=== PATIENT | female | born 1935 | race Caucasian/White ===

== ENCOUNTER → 2016-04-01 | Day surgery (SDC) | payer BC ==
[2016-03-26 10:06] VITALS: Ht 157.5 cm; Wt 79.5 kg
[~2016-04-01] VITALS: Ht 157.5 cm; Wt 79.5 kg
[~2016-04-01] MED LIST: 500ML BSS 0.3ML EPI 1:1000PF IRRIG ONE; ACETAMINOPHEN 325 MG TAB PO PRN; AMVISC PLUS 0.8ML SYRINGE INT OCU ONE; ASPCH81X PO; ATOR-54 PO; ATROPINE SULFATE 0.1 MG/ML 5ML SYR IV PRN; AcetaZOLAMIDE 250 MG TAB ONE; BETAXOLOL HCL 0.25% OP SUSP PER DROP CHARGE OPL SCH; BRIMONIDINE TART 0.2% OP SOLN PER DROP CHARGE ONE; BSS FLUSH ONE; CLOP1TAB15 PO; CLTP PO; ENDOCOAT 0.85ML SYRINGE INT OCU ONE; EpHEDrine SULFATE INJ 50 MG/ML AMP IV PRN; EpINEphrine INJ 1MG/ML AMP 1 MG/ML AMP ONE; FENTANYL CITRATE INJ 50 MCG/1 ML 2 ML VIAL IV PRN; FLUMAZENIL 0.1 MG/1 ML 10 ML VIAL IV PRN; FRS/40 PO; HYDROmorphone INJ 2 MG/ML SYR/VIAL IV PRN; LABETALOL HCL IV 5 MG/ML 20ML IV PRN; LACTATED RINGER'S 1000ML 500 ML IV SCH; LIDOCAINE 4% OP SOLN DROP CHARGE ONE; LIDOCAINE 4% OP SOLN DROP CHARGE OPL SCH; LIDOCAINE HCL 1% MPF 2 ML VIAL ONE; LISI5TAB3 PO; MEPERIDINE HCL 25 MG/ML CARP IV PRN; METO50TA16 PO; MIDAZOLAM HCL 1 MG/ML 2ML VIAL ONE; MIX: 4ML BSS 1ML EPI 1:1000 PF INSTIL ONE; MOXIFLOXACIN OPH SOLN PER DROP CHARGE ONE; MULT-506 PO; NALOXONE HCL 0.4 MG/1 ML VIAL/CARP IV PRN; NTRGSL/4 UT; OCUCOAT 1 ML SOLN IO ONE; ONDANSETRON INJ 2 MG/ML 2 ML VIAL IV PRN; PANT40TA PO; PHENYLEPHRINE 100MCG/ML 5ML SYR IV PRN; POVIDONE-IODINE OP SOLN 30 ML BTL ONE; PROPARACAINE 0.5% OP SOLN PER DROP CHARGE OPL SCH; TOBRAMYCIN/DEXAMETHASONE OPH OINT PER APPLN CHARGE ONE
--- NOTE | 2016-04-01 11:24 | History & Physical Bridge - [place] ---
H&P Re-Evaluation Bridge Note: I have examined the patient, reviewed the History & Physical and in the interval since the performance of the History & Physical I have noted the following changes of clinical significance: No changes noted
[2016-04-01] MEDS: PHENYLEPHRINE HCL 2.5% OP SOLN PER DROP CHARGE OPL SCH ×2 (11:42→11:47)
[2016-04-01] MEDS: TROPICAMIDE 1% OP SOLN PER DROP CHARGE OPL SCH ×2 (11:43→11:48)
[2016-04-01] MEDS: CYCLOPENTOLATE HCL 1% OP SOLN PER DROP CHARGE OPL SCH ×2 (11:44→11:49)
[2016-04-01] MEDS: MOXIFLOXACIN OPH SOLN PER DROP CHARGE OPL SCH ×2 (11:45→11:55)
--- NOTE | 2016-04-01 12:42 | Discharge Instructions-SurgCtr ---
Discharge Instructions Visit Reason for Visit: Cataract Left Eye Discharge Goals Goal(s): Improve function Activity Recommendations Lifting Limitations: no more than 10 pounds Exercise/Sports Limitations: gradually increase as tolerated May Resume Sexual Activity: when tolerated Shower/Bathe: tomorrow Driving or Machine Use: resume 1 day after discharge Anesthesia . Post Anesthesia Instructions: If you have had General Anesthesia or IV Sedation: * Do not drive today. * Resume driving when surgeon permits. * Do not make important decisions or sign legal documents today. * Call surgeon for: 1. Temperature elevations greater than 101 degrees F. 2. Uncontrollable pain. 3. Excessive bleeding. 4. Persistent nausea and vomiting. 5. Medication intolerance (nausea, vomiting or rash). * For nausea and vomiting use only clear liquids such as: tea, soda, bouillon until nausea subsides, then gradually increase diet as tolerated. * If you have any concerns or questions, call your surgeon's office. If physician is unavailable and it is an emergency, call 911 or go to the nearest emergency room. . Instructions / Follow-Up Instructions / Follow-Up ACTIVITY RECOMMENDATIONS: * Light activities. * Mild irritation and blurred vision are common for the first few days. * You may walk outside, read, watch television. * Redness around the white part of the eye is common. MEDICATIONS: Resume previous medications unless instructed otherwise by your surgeon. * Take white Diamox (Acetazolamide) tablet at 4 pm today. Start all eye drops at 4 pm today: * Eye drops (today and tomorrow): Prednisone - one drop in operative eye every 3 hours while awake Ofloxacin - one drop in operative eye every 3 hours while awake SPECIAL CARE INSTRUCTIONS: * Tape plastic shield over eye to sleep at night. Call your doctor at with any concerns or problems. FOLLOW UP VISIT: Follow-up with Dr Calhoun at [place] office as scheduled. Diet Recommendations Home Diet: resume previous diet Medical Emergencies . Who to Call and When: Medical Emergencies: If at any time you feel your situation is an emergency, please call 911 immediately. . Non-Emergent Contact . . "Provider Documentation" section prepared by Issac Calhoun.
--- NOTE | 2016-04-01 13:04 | [facility] Post Operative Brief Note ---
Immediate Operative Summary Operative Date Apr 01, 2016. Pre-Operative Diagnosis Cataract Left Eye Post-Operative Diagnosis Same Procedure(s) Performed Left Cataract Phacoemulsification With Intraocular Lens Implant Surgeon Dr. Calhoun Surgery Tech Surgeon(s) None Estimated Blood Loss None Findings Nuclear cataract left eye Fluids (cc crystalloids) 300 ml Specimens None Drains none Anesthesia L/S Complication(s) None Disposition Recovery Room / PACU
[2016-04-01 13:10] VITALS: TEMP 36.4
--- NOTE | 2016-04-01 13:22 | Anesthesia Progress Nt - [facility] ---
Anesthesia Post Op Note Date & Time Apr 01, 2016 at 13:22 Vital Signs Pain Intensity: 0 Vital Signs Past 12 Hours Date Time Temp Pulse Resp B/P Pulse Ox O2 Delivery O2 Flow Rate FiO2 04/01/16 13:10 36.4 61 16 106/54 100 Room Air 04/01/16 11:31 36.6 65 16 139/84 98 Room Air Notes Mental Status: alert / awake / arousable, participated in evaluation Pt Amnestic to Procedure: Yes Nausea / Vomiting: adequately controlled Pain: adequately controlled Airway Patency, RR, SpO2: stable & adequate BP & HR: stable & adequate Hydration State: stable & adequate Anesthetic Complications: no major complications apparent
--- NOTE | 2016-04-01 13:23 | OPERATIVE REPORT ---
DATE OF OPERATION: 04/01/2016 PREOPERATIVE DIAGNOSIS: Senile nuclear cataract, left eye. POSTOPERATIVE DIAGNOSIS: Senile nuclear cataract, left eye. PROCEDURE: Phacoemulsification of left cataract with posterior chamber lens implant, type Bausch \T\ Lomb, model MX60, power +23.50 Diopters. ANESTHESIA: Local standby. SURGEON: Dr. Calhoun. COMPLICATIONS: None. OPERATING TIME: 10 minutes. OPERATION AND FINDINGS: PROCEDURE: The left pupil was dilated. The anesthetic was administered using a topical technique. The left eye was prepped and draped. A speculum was placed. A paracentesis was placed. The chamber was filled with Amvisc Plus and EndoCoat. Epinephrine solution was used. A clear corneal incision was formed. A capsulorrhexis was performed. The nucleus was hydrodissected. The lens was removed with phacoemulsification. Time was 3.60 seconds. The aspiration unit was used to remove the cortex. The capsule was filled with Amvisc Plus. The lens implant was folded and placed into the capsule. The incision was hydrated. The Amvisc was aspirated. The wound was secure. The chamber was deep. The pupil was round. Brimonidine and TobraDex ointment and Vigamox solution were placed. The speculum was removed. DISPOSITION: The patient was returned to the recovery room in stable condition. I attest to the content of the Intraoperative Record and any orders documented therein. Any exceptions are noted below. I attest to the content of the Intraoperative Record and any orders documented therein. Any exceptions are noted below. KATYA
[2016-04-01 13:40] VITALS: BP 112/58; PULSE 62; O2SAT 98
== END | disposition home or self-care (01) ==
LOC: X.SURG 11:02
PROVIDERS: ATTEND Specialist
DX: H25.10 Age-related nuclear cataract, unspecified eye (principal); I10 Essential (primary) hypertension; I51.9 Heart disease, unspecified; Z79.82 Long term (current) use of aspirin

== ENCOUNTER → 2016-07-02 | Outpatient (CLI) | payer BC ==
[~2016-07-02] MED LIST changes: -500ML BSS 0.3ML EPI 1:1000PF IRRIG ONE; -ACETAMINOPHEN 325 MG TAB PO PRN; -AMVISC PLUS 0.8ML SYRINGE INT OCU ONE; -ATROPINE SULFATE 0.1 MG/ML 5ML SYR IV PRN; -AcetaZOLAMIDE 250 MG TAB ONE; -BETAXOLOL HCL 0.25% OP SUSP PER DROP CHARGE OPL SCH; -BRIMONIDINE TART 0.2% OP SOLN PER DROP CHARGE ONE; -BSS FLUSH ONE; -ENDOCOAT 0.85ML SYRINGE INT OCU ONE; -EpHEDrine SULFATE INJ 50 MG/ML AMP IV PRN; -EpINEphrine INJ 1MG/ML AMP 1 MG/ML AMP ONE; -FENTANYL CITRATE INJ 50 MCG/1 ML 2 ML VIAL IV PRN; -FLUMAZENIL 0.1 MG/1 ML 10 ML VIAL IV PRN; -HYDROmorphone INJ 2 MG/ML SYR/VIAL IV PRN; -LABETALOL HCL IV 5 MG/ML 20ML IV PRN; -LACTATED RINGER'S 1000ML 500 ML IV SCH; -LIDOCAINE 4% OP SOLN DROP CHARGE ONE; -LIDOCAINE 4% OP SOLN DROP CHARGE OPL SCH; -LIDOCAINE HCL 1% MPF 2 ML VIAL ONE; -MEPERIDINE HCL 25 MG/ML CARP IV PRN; -MIDAZOLAM HCL 1 MG/ML 2ML VIAL ONE; -MIX: 4ML BSS 1ML EPI 1:1000 PF INSTIL ONE; -MOXIFLOXACIN OPH SOLN PER DROP CHARGE ONE; -NALOXONE HCL 0.4 MG/1 ML VIAL/CARP IV PRN; -OCUCOAT 1 ML SOLN IO ONE; -ONDANSETRON INJ 2 MG/ML 2 ML VIAL IV PRN; -PHENYLEPHRINE 100MCG/ML 5ML SYR IV PRN; -POVIDONE-IODINE OP SOLN 30 ML BTL ONE; -PROPARACAINE 0.5% OP SOLN PER DROP CHARGE OPL SCH; -TOBRAMYCIN/DEXAMETHASONE OPH OINT PER APPLN CHARGE ONE
--- NOTE | 2016-07-02 10:55 | DIAGNOSTIC IMAGING REPORT ---
CT OF THE CHEST WITHOUT IV CONTRAST CLINICAL HISTORY: R91.1 Pulmonary [id number] COMPARISON STUDY: 05/29/2015 CT DOSE: 252.45 mGycm TECHNIQUE: CT of the thorax was performed from the thoracic inlet to the lung bases. Images are reviewed in the axial, sagittal, and coronal planes. IV contrast was not administered for this examination. FINDINGS: Thyroid: There is an equivocal 1 cm lower pole left lobe thyroid nodule. Thoracic aorta: The thoracic aorta is normal in course and caliber, noting standard 3 vessel arch anatomy. Heart: There are coronary artery calcifications. There is no pericardial effusion. Lungs and pleural spaces: There are no pleural effusions. There is no focal pulmonary consolidation. There is bibasilar atelectasis. There are scattered punctate bony nodules similar to the preceding study. The dominant 6 mm pleural-based right middle lobe pulmonary nodule remains unchanged. Mediastinum: There is no mediastinal lymphadenopathy. Smiley: There is no evidence of pathologic hilar adenopathy given the limitations of a noncontrast study Axilla: Clear. Upper abdomen: Cholelithiasis Skeletal structures: There are no lytic or blastic osseous lesions. IMPRESSION: 1. Stable 6 mm solid subpleural right middle lobe pulmonary nodule. 2. Cholelithiasis Please refer to below summary of Fleischner criteria recommendations for follow-up of incidental CT nodules (John Mccollum, Guidelines for management of small pulmonary nodules detected on CT scans: A statement from the Fleischner Society, Radiology 237: [phone].) SOLID NODULES Solitary nodule size: <6 mm * low risk patients: no follow-up needed * high risk patients: optional CT at 12 months Solitary nodule size: 6-8 mm * low risk patients: follow-up at 6-12 months, then consider further follow-up at 18-24 months * high risk patients: initial follow-up CT at 6-12 months and then at 18-24 months if no change Solitary nodule size: >8 mm * either low or high risk patients - consider follow-up CT at 3 months, and/or CT-PET, and/or biopsy Multiple nodules size: <6 mm * low risk patients: no routine follow-up * high risk patients: optional CT at 12 months Multiple nodules size: 6-8 mm * low risk patients: follow-up at 3-6 months, then consider further follow-up at 18-24 months * high risk patients: follow-up at 3-6 months, then at 18-24 months if no change Multiple nodules size: >8 mm * low risk patients: follow-up at 3-6 months, then consider further follow-up at 18-24 months * high risk patients: follow-up at 3-6 months, then at 18-24 months if no change Note: newly detected indeterminate nodule in persons 35 years of age or older. * low risk patients: minimal or absent history of smoking and/or other known risk factors * high risk patients: history of smoking or of other known risk factors (e.g. first degree relative with lung cancer, or exposure to asbestos, radon, uranium) * if a nodule up to 8 mm is partly solid or is ground glass further follow-up is required after 24 months to exclude possible slow growing adenocarcinoma (AL) SUBSOLID NODULES Solitary pure ground-glass nodule * nodule size <6 mm - no CT follow-up required * nodule size >=6 mm - follow-up CT at 6-12 months, then every 2 years until 5 years Solitary part-solid nodule * nodule size <6 mm - no CT follow-up required * nodule size >=6 mm - follow-up CT at 3-6 months. If unchanged, and solid component remains <6 mm, then annual follow-up for 5 years Multiple subsolid nodules * nodule size <6 mm - follow-up CT at 3-6 months, consider further follow-up at 2 and 4 years if stable * nodule size >=6 mm - follow-up CT at 3-6 months, subsequent management based on the most suspicious nodule(s) Electronically signed by: Sj Rao M.D. 07/02/2016 10:53 AM Dictated Date/Time: 07/02/2016 10:48 AM
== END | disposition home or self-care (01) ==
LOC: C.CTS 10:34
PROVIDERS: ATTEND Internal Medicine
DX: R91.1 Solitary pulmonary nodule (principal); K80.20 Calculus of gallbladder without cholecystitis without obstruction

== ENCOUNTER → 2016-08-03 | Outpatient (CLI) | payer BC | END | disposition home or self-care (01) | LOC: C.LAB1850 10:52 | PROVIDERS: ATTEND Internal Medicine Rheumatology | DX: M81.0 Age-related osteoporosis without current pathological fracture (principal); E55.9 Vitamin D deficiency, unspecified; E61.8 Deficiency of other specified nutrient elements ==

== ENCOUNTER → 2016-12-21 | Outpatient (CLI) | payer BC ==
--- NOTE | 2016-12-21 14:15 | MAMMOGRAPHY REPORT ---
BILATERAL DIGITAL SCREENING MAMMOGRAM WITH CAD: 12/21/2016 CLINICAL HISTORY: Routine screening. Patient has no complaints. TECHNIQUE: Bilateral CC and MLO views were obtained. Current study was also evaluated with a Compute r Aided Detection (CAD) system. COMPARISON: Comparison is made to exams dated: 12/19/2015 mammogram, 12/17/2014 mammogram, 12/15/2013 m ammogram, 09/22/2012 mammogram, 05/14/2011 mammogram, and 05/12/2010 mammogram - [facility]ter. BREAST COMPOSITION: There are scattered areas of fibroglandular density in both breasts. FINDINGS: There are benign-appearing rodlike calcifications in the breasts, and mild vascular calcifi cation bilaterally. No suspicious mass, architectural distortion or cluster of suspicious microcalci fications is seen. IMPRESSION: ACR BI-RADS CATEGORY 1: NEGATIVE There is no mammographic evidence of malignancy. A 1 year screening mammogram is recommended. The pa tient will receive written notification of the results. Approximately 10% of breast cancers are not detected with mammography. A negative mammographic report should not delay biopsy if a clinically suggestive mass is present. Aaliyah Mcneil M.D. ay/:12/21/2016 13:40:21 Television Presenter: Danita PADILLA(Veena)(M), [facility] letter sent: Normal 1/2 BI-RADS Code: ACR BI-RADS Category 1: Negative
== END | disposition home or self-care (01) ==
LOC: C.MAMM 10:24
PROVIDERS: ATTEND Internal Medicine
DX: Z12.31 Encounter for screening mammogram for malignant neoplasm of breast (principal)

== ENCOUNTER → 2016-12-29 | Outpatient (CLI) | payer BC ==
[2016-12-29 10:07] LABS: HEMATOCRIT 36.9 % (37-47); MEAN CELL VOLUME 91.1 fL (80-100); MEAN CORPUSCULAR HEMOGLOBIN 29.1 pg (25-34); MEAN PLATELET VOLUME 9.2 fL (7.4-10.4); PLATELET COUNT 212 K/uL (130-400); RED BLOOD COUNT 4.05 M/uL (4.2-5.4); WHITE BLOOD COUNT 6.63 K/uL (4.8-10.8)
[2016-12-29 10:41] LABS: ALT/SGPT 18 U/L (12-78); BLOOD UREA NITROGEN 22 mg/dl (7-18); BUN/CREATININE RATIO 20.1 (10-20); CALCIUM 9.3 mg/dl (8.5-10.1); CARBON DIOXIDE 29 mmol/L (21-32); CHLORIDE 108 mmol/L (98-107); CHOLESTEROL 119 mg/dl (0-200); CREATININE 1.11 mg/dl (0.60-1.20); GLUCOSE 84 mg/dl (70-99); POTASSIUM 4.3 mmol/L (3.5-5.1); SODIUM 142 mmol/L (136-145); TRIGLYCERIDES 66 mg/dl (0-150); VERY LOW DENSITY LIPOPROT CALC 13 mg/dl
[2016-12-29 10:44] LABS: ALB/GLOB RATIO 0.9 (0.9-2); ALKALINE PHOSPHATASE 73 U/L (45-117); AST/SGOT 19 U/L (15-37); CHOLESTEROL/HDL RATIO 1.8; HDL CHOLESTEROL 65 mg/dl; LDL CHOLESTEROL CALCULATED 41 mg/dl
== END | disposition home or self-care (01) ==
LOC: C.LAB 09:32
PROVIDERS: ATTEND Internal Medicine Cardiovascular Disease
DX: I25.10 Atherosclerotic heart disease of native coronary artery without angina pectoris (principal)

== ENCOUNTER → 2017-06-30 | Outpatient (CLI) | payer BC ==
--- NOTE | 2017-06-30 10:23 | DIAGNOSTIC IMAGING REPORT ---
(CHEST) THORAX WITHOUT CT DOSE: 261.93 mGy.cm HISTORY: R91.1 Pulmonary [id number] month follow up [id number] TECHNIQUE: Multiaxial CT images of the chest were performed without contrast. A dose lowering technique was utilized adhering to the principles of ALARA. COMPARISON: Chest CT 07/02/2016. Chest CT 05/29/2015. FINDINGS: The central airways are patent. No pleural effusions. No pneumothorax. Mild emphysema. Stable 3 mm nodule within the left lung apex on image 54. Punctate calcified granuloma within the left lung apex. Stable subcentimeter nodules within the right upper lobe with the largest on image 41 measuring 3 mm. A few scattered bibasilar linear densities suggesting scarring or subsegmental atelectasis. Stable 3 mm nodule within the right middle lobe on image 160. Stable 6 mm subpleural nodule within the right middle lobe on image 169. Stable 4 mm nodule within the right lower lobe on image 171. No new pulmonary nodules. No suspicious lytic or blastic osseous lesions. There is no left thyroid nodule. This remains unchanged. No mediastinal or hilar lymphadenopathy. The ascending thoracic aorta measures up to 3.8 cm in diameter. Calcified plaque within the coronary arteries. The heart remains mildly enlarged. Outside granuloma within the right upper lobe. The visualized liver, spleen, and adrenal glands are unremarkable. Small calcification within the posterior pericardium. IMPRESSION: 1. No significant change compared the prior study. Scattered subcentimeter pulmonary nodules as described above with the largest in the right middle lobe measuring 6 mm. These demonstrate greater than 2 year stability. Please refer to the chart below for recommended follow-up. 2. Mild emphysema. 3. Mild cardiomegaly. Please refer to below summary of Fleischner criteria recommendations for follow-up of incidental CT nodules (John Mccollum, Guidelines for management of small pulmonary nodules detected on CT scans: A statement from the Fleischner Society, Radiology 237: [phone].) SOLID NODULES Solitary nodule size: <6 mm * Low risk patients: no follow-up needed * high risk patients: optional CT at 12 months Solitary nodule size: 6-8 mm * Low risk patients: follow-up at 6-12 months, then consider further follow-up at 18-24 months * high risk patients: initial follow-up CT at 6-12 months and then at 18-24 months if no change Solitary nodule size: >8 mm * either low or high risk patients - consider follow-up CT at 3 months, and/or CT-PET, and/or biopsy Multiple nodules size: <6 mm * Low risk patients: no routine follow-up * high risk patients: optional CT at 12 months Multiple nodules size: 6-8 mm * Low risk patients: follow-up at 3-6 months, then consider further follow-up at 18-24 months * high risk patients: follow-up at 3-6 months, then at 18-24 months if no change Multiple nodules size: >8 mm * Low risk patients: follow-up at 3-6 months, then consider further follow-up at 18-24 months * high risk patients: follow-up at 3-6 months, then at 18-24 months if no change Note: newly detected indeterminate nodule in persons 35 years of age or older. * Low risk patients: minimal or absent history of smoking and/or other known risk factors * high risk patients: history of smoking or of other known risk factors (e.g. first degree relative with lung cancer, or exposure to asbestos, radon, uranium) * if a nodule up to 8 mm is partly solid or is ground glass further follow-up is required after 24 months to exclude possible slow growing adenocarcinoma (AL) SUBSOLID NODULES Solitary pure ground-glass nodule * nodule size <6 mm - no CT follow-up required * nodule size >=6 mm - follow-up CT at 6-12 months, then every 2 years until 5 years Solitary part-solid nodule * nodule size <6 mm - no CT follow-up required * nodule size >=6 mm - follow-up CT at 3-6 months. If unchanged, and solid component remains <6 mm, then annual follow-up for 5 years Multiple subsolid nodules * nodule size <6 mm - follow-up CT at 3-6 months, consider further follow-up at 2 and 4 years if stable * nodule size >=6 mm - follow-up CT at 3-6 months, subsequent management based on the most suspicious nodule(s) Electronically signed by: Pineda Gutierrez M.D. 06/30/2017 10:22 AM Dictated Date/Time: 06/30/2017 10:13 AM
== END | disposition home or self-care (01) ==
LOC: C.CTS 09:41
PROVIDERS: ATTEND Internal Medicine
DX: R91.1 Solitary pulmonary nodule (principal)

== ENCOUNTER → 2017-07-12 | Outpatient (CLI) | payer BC | END | disposition home or self-care (01) | LOC: C.MAMM 10:50 | PROVIDERS: ATTEND Internal Medicine Rheumatology | DX: M81.0 Age-related osteoporosis without current pathological fracture (principal); E61.8 Deficiency of other specified nutrient elements; M85.88 Other specified disorders of bone density and structure, other site ==

== ENCOUNTER 2017-07-21 15:40 | Emergency (ER) | payer BC ==
[~2017-07-21] VITALS: Ht 152.4 cm; Wt 81.0 kg
[2017-07-21 15:46] VITALS: TEMP 36.4; Ht 152.4 cm; Wt 81.0 kg
[2017-07-21] MEDS ORDERED: DIAZEPAM 5MG TAB PO STA (16:06)
--- NOTE | 2017-07-21 16:15 | EMERGENCY ROOM VISIT NOTE ---
ED Visit Note First contact with patient: 15:52 CHIEF COMPLAINT: Low back pain HISTORY OF PRESENT ILLNESS: This 82-year-old female patient presents to the emergency department, ambulatory, with her , complaining of pain in the low back which began approximately 4 days ago. Today, she states she had company to the house and kept turning towards the left. The pain began worsening on the right, and she states "I think I must have pulled a muscle!" The pain was gradual in onset, is now constant and worse with movement. The patient notes the pain as "pain" and a 10/10. The patient has taken Tylenol without relief of the pain. The patient denies any loss of control of their bowel or bladder functions. There has been no leg numbness or weakness, and no change in sensation. No nausea or vomiting or abdominal pain. No chest pain or shortness of breath. The patient has not had prior back injuries. No dysuria or increased urinary frequency. Patient does have a history of osteopenia and osteoporosis. REVIEW OF SYSTEMS: A 10 system review of systems was performed with positives and pertinent negatives listed in the history of present illness. All other systems were reviewed and are negative. ALLERGIES: None MEDICATIONS: Tylenol, Eliquis, ASA, Lipitor, Fish Oil, Lasix, Lisinopril, Lopressor, Nitrostat PMH: Osteopenia, GERD, heart disease, HTN SOCIAL HISTORY: The patient lives locally with family. She denies drug, alcohol, tobacco use. PHYSICAL EXAM: VITALS: Vitals are noted on the nurse's note and reviewed by myself. Vital signs stable. GENERAL: This is a very pleasant 82 year old white female, in no acute distress , nondiaphoretic, well-developed well-nourished. SKIN: The skin was without rashes, erythema, edema, or bruising. Capillary refill less than 2 seconds. NECK: Supple without nuchal rigidity. No cervical spine tenderness. No paraspinous muscle tenderness. HEART: Regular rate and rhythm without murmurs gallops or rubs. LUNGS: Clear to auscultation bilaterally without wheezes, rales or rhonchi. ABDOMEN: Positive bowel sounds x 4. Normal tympanic percussion. Soft, nontender, without masses or organomegaly. Peng sign negative. No CVA tenderness MUSCULOSKELETAL: No muscle atrophy, erythema, or edema noted of the back. There is no tenderness over the lumbar spinous processes. There is moderate tenderness over the paraspinous muscles on the right with mild tenderness on the left. There is no tenderness over the thoracic spine or paraspinous muscles. There are muscle spasms present. The patient is slow to move around with maximum tenderness with position changes and setting. Positive straight leg raise test on the right. NEURO: Patient was alert and oriented to person place and time. Normal sensation to light and sharp touch. Deep tendon reflexes 2+ in the lower extremities. Dorsalis pedis pulse 2+ bilaterally. Strength 5/5 and equal in the bilateral lower extremities. RADIOLOGY: L-SPINE MIN 4 VIEWS ROUTINE CLINICAL HISTORY: 82 years-old Female presenting with low back pain. TECHNIQUE: Frontal, bilateral oblique, lateral, and coned in lateral views lumbar spine were obtained. COMPARISON: None. FINDINGS: Mild dextroscoliotic curvature of the lumbar spine centered at L3-4. Osteopenia. Exaggerated lumbar lordosis. Transitional lumbosacral anatomy of L5. Allowing for scoliotic curvature, vertebral bodies grossly normal height. No wedging deformities. Mild multilevel degenerative changes of the vertebral disc spaces grossly preserved. Degenerative change is greatest at L1-2. No gross evidence of osseous neural foraminal narrowing. Atherosclerosis. Sacrum grossly intact. Symmetric sacroiliac joints. Nonobstructive bowel gas pattern. IMPRESSION: 1. Mild dextroscoliotic curvature of the lumbar spine and osteopenia limits evaluation of the spine for acute osseous injury. Allowing for this, no radiographic evidence of acute osseous injury. 2. Mild multilevel degenerative changes. No gross evidence of osseous neural foraminal narrowing. Electronically signed by: Sanjay Otero M.D. 07/21/2017 4:39 PM Dictated Date/Time: 07/21/2017 4:36 PM ABD/PELVIS WITHOUT FOR STONE CLINICAL HISTORY: 82 years-old Female presenting with right flank pain for 3 to 4 days. TECHNIQUE: Multidetector CT of the abdomen and pelvis was performed without the use of intravenous contrast. IV contrast: None. A dose lowering technique was used consistent with the principles of ALARA (as low as reasonably achievable). COMPARISON: None. CT DOSE (mGy.cm): The estimated cumulative dose is 1105.17 mGy.cm. 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 Lung bases: Minimal basilar opacities, likely atelectasis. Normal heart size. Coronary artery calcification. No pericardial or pleural effusion. Liver: Normal morphology. Normal density. Biliary: No gross biliary ductal dilatation allowing for noncontrast technique. Gallbladder contains gallstones. Pancreas: Severe parenchymal atrophy. Spleen: Normal noncontrast appearance. Adrenal glands: Normal noncontrast appearance. Kidneys and ureters: Cortical thinning at the upper pole of the right kidney suggests reflux nephropathy or prior infarct or injury. Few parapelvic cysts suggested in the left kidney. No nephrolithiasis. No hydronephrosis. Normal ureters. Bladder: Incompletely evaluated secondary to underdistention. Pelvic organs: Normal noncontrast appearance. Bowel: Diverticulosis of the sigmoid colon. No pericolonic fat infiltration or wall thickening. Mild stool burden. The appendix is normal. No bowel obstruction. Peritoneal cavity: No free fluid or intraperitoneal gas. Lymph nodes: No gross lymphadenopathy allowing for noncontrast technique. Vasculature: Atherosclerosis of the normal caliber abdominal aorta. Abdominal wall: Small fat-containing umbilical hernia. Musculoskeletal: Degenerative changes of the spine. IMPRESSION: 1. Cholelithiasis. 2. No nephrolithiasis or hydronephrosis. 3. Diverticulosis. No evidence of diverticulitis. Electronically signed by: Sanjay Otero M.D. 07/21/2017 7:11 PM Dictated Date/Time: 07/21/2017 7:03 PM EMERGENCY DEPARTMENT COURSE: The patient was seen and evaluated as above. Patient was given 5 mg Valium. X-rays performed and reviewed by myself and radiologist as above. She was reassessed and continues to be experiencing severe pain. She describes the pain as 10/10. She was given a Lidoderm patch at this time. The patient was reassessed approximately 45 minutes later. She states she does believe she may have a UTI due to some mild urinary discomfort. She was given 1 dose of [place]. Urinalysis was performed and showed leukocytes and blood. The patient was reassessed and states her pain is still not controlled. IV access obtained and labs drawn at this point. The patient was given 25 mcg fentanyl IV. The patient was sent for a CT scan of the abdomen /pelvis without contrast. This was negative for stone or other acute process. Labs did not reveal any significant leukocytosis, anemia, thrombus cytopenia. Renal and hepatic function were normal. Electrolytes were normal. The patient was reassessed and states she was feeling better, however began worsening again. I advised her that she has had multiple doses of strong pain medication and muscle relaxers and that I would not be giving her any more narcotics at this time. The patient verbalized understanding. She will be sent home with a home pack for tramadol, but she was advised that she must follow-up with her PCP tomorrow for any further pain management required. The patient verbalized understanding. Discharge instructions reviewed, the patient was discharged home in good condition. The patient was seen and evaluated by Dr. Zamudio independently. I attest that I have personally reviewed the patient's current medication list. Blood Pressure Screening: Patient was found to have a slightly elevated blood pressure due to circumstances. I do not believe that the patient requires hypertension monitoring. Etiologies such as lumbago, sciatica, cauda equina, epidural abscess, osteomyelitis, fracture, aortic disease, metastatic disease, infection, renal colic, gastrointestinal, as well as others were entertained. DIAGNOSIS: Lumbar strain The chart was completed utilizing [employer] Speech voice recognition software. Grammatical errors, random word insertions, pronoun errors, and incomplete sentences are an occasional consequence of this system due to software limitations, ambient noise, and hardware issues. Any formal questions or concerns about the content, text, or information contained within the body of this dictation should be directly addressed to the provider for clarification. Current/Historical Medications Scheduled Acetaminophen/Diphenhydramine (Tylenol Pm), 1 TAB PO HS Apixaban (Eliquis), 5 MG PO BID Aspirin (Aspirin Ec), 81 MG PO DAILY Atorvastatin (Lipitor), 20 MG PO QPM Calcium Carbonate-Cholecalcife (Calcium/Vitamin D3 600-400 mg-Unit), 1 TAB PO BID Fish Oil ([place]-3), 1 CAP PO DAILY Furosemide (Lasix), 40 MG PO Q2D Lisinopril (Lisinopril), 2.5 MG PO QAM Metoprolol Tartrate (Lopressor) (Lopressor), 50 MG PO BID Multiple Vitamins W/ Minerals (Centrum Silver Adult 50+), 1 TAB PO DAILY Scheduled PRN Acetaminophen (Tylenol), 500 MG PO UD PRN for Pain or Fever Nitroglycerin (Nitrostat), 0.4 MG UT UD PRN for Chest Pain Allergies Coded Allergies: NO KNOWN DRUG ALLERGIES (Verified Allergy, Unknown, ., 04/01/16) Vital Signs Date Time Temp Pulse Resp B/P (MAP) Pulse Ox O2 Delivery O2 Flow Rate FiO2 07/21/17 20:59 76 16 140/68 99 Room Air 07/21/17 19:05 99 Room Air 07/21/17 19:05 71 20 131/57 100 Room Air 07/21/17 15:46 36.4 83 20 155/55 94 Room Air Laboratory Results 07/21/17 19:10 Red Blood Count 4.04, Mean Corpuscular Volume 88.9, Mean Corpuscular Hemoglobin 29.0, Mean Corpuscular Hemoglobin Concent 32.6, Mean Platelet Volume 9.1, Neutrophils (%) (Auto) 73.5, Lymphocytes (%) (Auto) 19.1, Monocytes (%) (Auto) 4.9, Eosinophils (%) (Auto) 1.8, Basophils (%) (Auto) 0.4, Neutrophils # (Auto) 5.74, Lymphocytes # (Auto) 1.49, Monocytes # (Auto) 0.38, Eosinophils # (Auto) 0.14, Basophils # (Auto) 0.03 07/21/17 19:10 Test 07/21/17 19:10 White Blood Count 7.80 K/uL (4.8-10.8) Red Blood Count 4.04 M/uL (4.2-5.4) Hemoglobin 11.7 g/dL (12.0-16.0) Hematocrit 35.9 % (37-47) Mean Corpuscular Volume 88.9 fL (80-100) Mean Corpuscular Hemoglobin 29.0 pg (25-34) Mean Corpuscular Hemoglobin Concent 32.6 g/dl (32-36) Platelet Count 235 K/uL (130-400) Mean Platelet Volume 9.1 fL (7.4-10.4) Neutrophils (%) (Auto) 73.5 % Lymphocytes (%) (Auto) 19.1 % Monocytes (%) (Auto) 4.9 % Eosinophils (%) (Auto) 1.8 % Basophils (%) (Auto) 0.4 % Neutrophils # (Auto) 5.74 K/uL (1.4-6.5) Lymphocytes # (Auto) 1.49 K/uL (1.2-3.4) Monocytes # (Auto) 0.38 K/uL (0.11-0.59) Eosinophils # (Auto) 0.14 K/uL (0-0.5) Basophils # (Auto) 0.03 K/uL (0-0.2) RDW Standard Deviation 47.7 fL (36.4-46.3) RDW Coefficient of Variation 14.6 % (11.5-14.5) Immature Granulocyte % (Auto) 0.3 % Immature Granulocyte # (Auto) 0.02 K/uL (0.00-0.02) Anion Gap 9.0 mmol/L (3-11) Est Creatinine Clear Calc Drug Dose 34.3 ml/min Estimated GFR () 50.6 Estimated GFR (Non- 43.7 BUN/Creatinine Ratio 23.0 (10-20) Calcium Level 9.0 mg/dl (8.5-10.1) Total Bilirubin 0.6 mg/dl (0.2-1) Aspartate Amino Transf (AST/SGOT) 20 U/L (15-37) Alanine Aminotransferase (ALT/SGPT) 20 U/L (12-78) Alkaline Phosphatase 77 U/L (45-117) Total Protein 7.9 gm/dl (6.4-8.2) Albumin 3.4 gm/dl (3.4-5.0) Globulin 4.5 gm/dl (2.5-4.0) Albumin/Globulin Ratio 0.8 (0.9-2) Medications Administered Medications (Trade) Dose Ordered Sig/Bruno Route Start Time Stop Time Status Last Admin Dose Admin Diazepam (Valium Tab) 5 mg NOW STAT PO 07/21/17 16:06 07/21/17 16:10 DC 07/21/17 16:20 5 MG Lidocaine (Lidoderm Patch 5%) 1 patch NOW STAT TD 07/21/17 16:48 07/21/17 16:49 DC 07/21/17 17:08 1 PATCH Acetaminophen/ Hydrocodone Bitart ([place] 5/325 Tab) 1 tab NOW STAT PO 07/21/17 17:23 07/21/17 17:24 DC 07/21/17 17:35 1 TAB Fentanyl Citrate (Fentanyl Inj) 25 mcg NOW STAT IV 07/21/17 18:27 07/21/17 18:29 DC 07/21/17 19:23 25 MCG Tramadol HCl (Ultram Home Pack) 1 homepack UD ONCE PO 07/21/17 20:30 07/21/17 20:31 DC 07/21/17 20:30 1 HOMEPACK Departure Information Impression Primary Impression: Strain of lumbar region Dispostion Home / Self-Care Condition GOOD Referrals Sanjay Patel M.D. (PCP) Patient Instructions ED Exercises Lumbar Muscles, ED Sprain Strain Lumbar, [facility] Additional Instructions You have been treated in the Emergency Department for Back Pain. You have received pain medicine in the emergency department which impairs your ability to operate a vehicle. It is illegal for you to drive after receiving these medicines. You have been prescribed tramadol to be used for pain control. This is a narcotic medication. You cannot drive or consume alcohol while on this medicine. This medicine should only be used for pain that cannot be controlled with [id number]-iph-lofgrdy pain medicines. For pain control, you can use the following [id number]-dep-[id number] medicines (if >12 yo): Ibuprofen(Motrin, Advil) may be used for fever or pain. Use 600mg every six hours as needed. Take with food. Avoid using more than 2400mg in a 24 hour period. Do not use 2400mg per day for more than three consecutive days without physician direction. Prolonged inappropriate use can lead to stomach upset or ulcers. (AND/OR) Acetaminophen(Tylenol) may be used for fever or pain. Use 1000mg every six hours as needed. Avoid using more than 3000mg in a 24 hour period. If this is an acute injury, ice can be applied to the area of pain for the first 3 days to help decrease pain and inflammation. After the first 3 days, a heating pad can be used over the area for continued soothing relief. You should schedule a follow-up appointment tomorrow with your Primary Care Provider for further evaluation and treatment of your back pain. Return to the Emergency Department if your current symptoms worsen despite treatment course outlined above, or if you develop any of the following symptoms : intractable pain despite aforementioned treatment course, loss of control of your bowel or bladder, numbness or tingling in your groin, or development of a fever. Problem Qualifiers Primary Impression: Strain of lumbar region Encounter type: initial encounter Qualified Codes: S39.012A - Strain of muscle, fascia and tendon of lower back, initial encounter
[2017-07-21] MEDS ORDERED: LSN5 PO (16:40)
[2017-07-21] MEDS ORDERED: ASPI81TA28 PO (16:40)
[2017-07-21] MEDS ORDERED: APIX1TAB3 PO (16:40)
[2017-07-21] MEDS ORDERED: ATOR-22 PO (16:40)
--- NOTE | 2017-07-21 16:41 | DIAGNOSTIC IMAGING REPORT ---
L-SPINE MIN 4 VIEWS ROUTINE CLINICAL HISTORY: 82 years-old Female presenting with low back pain. TECHNIQUE: Frontal, bilateral oblique, lateral, and coned in lateral views lumbar spine were obtained. COMPARISON: None. FINDINGS: Mild dextroscoliotic curvature of the lumbar spine centered at L3-4. Osteopenia. Exaggerated lumbar lordosis. Transitional lumbosacral anatomy of L5. Allowing for scoliotic curvature, vertebral bodies grossly normal height. No wedging deformities. Mild multilevel degenerative changes of the vertebral disc spaces grossly preserved. Degenerative change is greatest at L1-2. No gross evidence of osseous neural foraminal narrowing. Atherosclerosis. Sacrum grossly intact. Symmetric sacroiliac joints. Nonobstructive bowel gas pattern. IMPRESSION: 1. Mild dextroscoliotic curvature of the lumbar spine and osteopenia limits evaluation of the spine for acute osseous injury. Allowing for this, no radiographic evidence of acute osseous injury. 2. Mild multilevel degenerative changes. No gross evidence of osseous neural foraminal narrowing. Electronically signed by: Sanjay Otero M.D. 07/21/2017 4:39 PM Dictated Date/Time: 07/21/2017 4:36 PM
[2017-07-21] MEDS ORDERED: CALC-579 PO (16:42)
[2017-07-21] MEDS ORDERED: OMEG10007 PO (16:44)
[2017-07-21] MEDS ORDERED: DIPH-437 PO (16:44)
[2017-07-21] MEDS ORDERED: ACET-1256 PO (16:44)
[2017-07-21] MEDS ORDERED: MULT-845 PO (16:44)
[2017-07-21] MEDS ORDERED: LIDODERM (LIDOCAINE) PATCH 5% TD STA (16:48)
--- NOTE | 2017-07-21 17:03 | EMERGENCY ROOM VISIT NOTE ---
ED Visit Note First contact with patient: 15:52 I have personally seen and evaluated the patient with the PA. I agree with the diagnosis and management decisions and have been personally involved in the case. Please see Tonya House PA-C's notes for further details of the history, physical and visit.
[2017-07-21] MEDS ORDERED: HYDROCODONE/ACETAMIN 5/325MG TAB PO STA (17:23)
[2017-07-21] MEDS ORDERED: FENTANYL CITRATE INJ 50 MCG/1 ML 2 ML VIAL IV STA (18:27)
[2017-07-21 19:05] VITALS: O2SAT 99
--- NOTE | 2017-07-21 19:13 | DIAGNOSTIC IMAGING REPORT ---
ABD/PELVIS WITHOUT FOR STONE CLINICAL HISTORY: 82 years-old Female presenting with right flank pain for 3 to 4 days. TECHNIQUE: Multidetector CT of the abdomen and pelvis was performed without the use of intravenous contrast. IV contrast: None. A dose lowering technique was used consistent with the principles of ALARA (as low as reasonably achievable). COMPARISON: None. CT DOSE (mGy.cm): The estimated cumulative dose is 1105.17 mGy.cm. 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 Lung bases: Minimal basilar opacities, likely atelectasis. Normal heart size. Coronary artery calcification. No pericardial or pleural effusion. Liver: Normal morphology. Normal density. Biliary: No gross biliary ductal dilatation allowing for noncontrast technique. Gallbladder contains gallstones. Pancreas: Severe parenchymal atrophy. Spleen: Normal noncontrast appearance. Adrenal glands: Normal noncontrast appearance. Kidneys and ureters: Cortical thinning at the upper pole of the right kidney suggests reflux nephropathy or prior infarct or injury. Few parapelvic cysts suggested in the left kidney. No nephrolithiasis. No hydronephrosis. Normal ureters. Bladder: Incompletely evaluated secondary to underdistention. Pelvic organs: Normal noncontrast appearance. Bowel: Diverticulosis of the sigmoid colon. No pericolonic fat infiltration or wall thickening. Mild stool burden. The appendix is normal. No bowel obstruction. Peritoneal cavity: No free fluid or intraperitoneal gas. Lymph nodes: No gross lymphadenopathy allowing for noncontrast technique. Vasculature: Atherosclerosis of the normal caliber abdominal aorta. Abdominal wall: Small fat-containing umbilical hernia. Musculoskeletal: Degenerative changes of the spine. IMPRESSION: 1. Cholelithiasis. 2. No nephrolithiasis or hydronephrosis. 3. Diverticulosis. No evidence of diverticulitis. Electronically signed by: Sanjay Otero M.D. 07/21/2017 7:11 PM Dictated Date/Time: 07/21/2017 7:03 PM
[2017-07-21 19:38] LABS: BASO % 0.4 %; BASO ABS # 0.03 K/uL (0-0.2); EOS % 1.8 %; EOS ABS # 0.14 K/uL (0-0.5); HEMATOCRIT 35.9 % (37-47); HEMOGLOBIN 11.7 g/dL (12.0-16.0); IG# 0.02 K/uL (0.00-0.02); LYMPH % 19.1 %; LYMPH ABS # 1.49 K/uL (1.2-3.4); MEAN CELL VOLUME 88.9 fL (80-100); MEAN CORPUSCULAR HGB CONC 32.6 g/dl (32-36); MEAN PLATELET VOLUME 9.1 fL (7.4-10.4); MONO % 4.9 %; MONO ABS # 0.38 K/uL (0.11-0.59); NEUT % 73.5 %; NEUT ABS # 5.74 K/uL (1.4-6.5); PLATELET COUNT 235 K/uL (130-400); RED CELL DISTRIBUTION WIDTH CV 14.6 % (11.5-14.5); RED CELL DISTRIBUTION WIDTH SD 47.7 fL (36.4-46.3)
[2017-07-21 19:58] LABS: ALBUMIN 3.4 gm/dl (3.4-5.0); CREATININE 1.15 mg/dl (0.60-1.20); POTASSIUM 4.2 mmol/L (3.5-5.1)
[2017-07-21 20:01] LABS: TOTAL PROTEIN 7.9 gm/dl (6.4-8.2)
[2017-07-21] MEDS ORDERED: TRAMADOL HCL 50 MG HOME PACK PO ONE (20:30)
[2017-07-21 20:59] VITALS: BP 140/68; PULSE 76; O2SAT 99
== END 2017-07-21 21:13 | disposition home or self-care (01) ==
LOC: C.EDB 15:41 → C.EDD 21:13
DX: S39.012A Strain of muscle, fascia and tendon of lower back, initial encounter (principal); X58.XXXA Exposure to other specified factors, initial encounter; R30.9 Painful micturition, unspecified; R82.99 Other abnormal findings in urine; I11.9 Hypertensive heart disease without heart failure; Z79.01 Long term (current) use of anticoagulants; Z79.82 Long term (current) use of aspirin

== ENCOUNTER → 2017-11-01 | Outpatient (CLI) | payer BC ==
[~2017-11-01] MED LIST changes: +ACET-1256 PO; +APIX1TAB3 PO; -ASPCH81X PO; +ASPI81TA28 PO; +ATOR-22 PO; -ATOR-54 PO; +CALC-579 PO; -CLOP1TAB15 PO; -CLTP PO; +DIPH-437 PO; +LISI-730 PO; -LISI5TAB3 PO; -MULT-506 PO; +MULT-845 PO; +OMEG10007 PO; -PANT40TA PO
[2017-11-01 13:59] LABS: BLOOD UREA NITROGEN 27 mg/dl (7-18); CALCIUM 10.4 mg/dl (8.5-10.1); CARBON DIOXIDE 32 mmol/L (21-32); CREATININE 1.19 mg/dl (0.60-1.20); GLUCOSE 93 mg/dl (70-99); SODIUM 141 mmol/L (136-145)
== END | disposition home or self-care (01) ==
LOC: C.LABPBG 10:10
PROVIDERS: ATTEND Internal Medicine
DX: R60.9 Edema, unspecified (principal)